=== PATIENT | male | born 1955 | race African-American/Black ===

== ENCOUNTER 2019-03-19 00:19 | Emergency (ER) | payer OTHER ==
[~2019-03-19] VITALS: Ht 188 cm; Wt 104.3 kg
--- NOTE | 2019-03-19 00:45 | NUR ---
Patient BIBA # due to right LE pain with edema on [place]. LE. Patient AAOx4. Able to speak full sentences. In no acute respiratory distress. Breathing even and non-labored. Patient with history of CHF. Denies SOB/CP. No /GI concern. Bed on lock position. Fall precaution per protocol.
--- NOTE | 2019-03-19 00:53 | NUR ---
SUSY LUBIN at bedside for MSE.
[2019-03-19] MEDS ORDERED: FURO20TA90 PO (00:56)
[2019-03-19] MEDS ORDERED: LIPITOR PO (00:56)
[2019-03-19] MEDS ORDERED: CARVEDILOL PO (00:56)
[2019-03-19] MEDS ORDERED: COREG PO (00:56)
[2019-03-19] MEDS ORDERED: ASPI-605 PO (00:56)
[2019-03-19] MEDS ORDERED: ENALAPRIL PO (00:56)
[2019-03-19] MEDS ORDERED: POTA20TA10 PO (01:14)
[2019-03-19] MEDS ORDERED: FUROSEMIDE 20 MG/2 ML VIAL IV ONE (01:15)
[2019-03-19] MEDS ORDERED: FUROSEMIDE 40 MG/4 ML VIAL ONE (01:16)
[2019-03-19 01:25] LABS: BASOPHILS % (AUTO) 0.9 % (0.0-2.0); EOSINOPHILS # (AUTO) 0.1 K/uL (0.0-0.7); EOSINOPHILS % (AUTO) 1.7 % (0.0-7.0); HEMOGLOBIN 13.8 g/dL (12.5-16.3); LYMPHOCYTES # (AUTO) 2.6 K/uL (20.0-40.0); LYMPHOCYTES % (AUTO) 50.6 % (20.5-51.5); MEAN CORPUSCULAR HEMOGLOBIN 31.3 uug (23.8-33.4); MEAN CORPUSCULAR HGB CONC 34 g/dL (32.5-36.3); MEAN CORPUSCULAR VOLUME 91.1 fL (73.0-96.2); MONOCYTES # (AUTO) 0.4 K/uL (2.0-10.0); MONOCYTES % (AUTO) 8.7 % (0.0-11.0); NEUTROPHILS % (AUTO) 38.1 % (38.5-71.5); PLATELET COUNT (AUTO) 247 K/uL (152-348); RED BLOOD CELL COUNT(AUTO) 4.39 MIL/uL (4.06-5.63); WHITE BLOOD COUNT (AUTO) 5.1 K/uL (3.6-10.2)
[2019-03-19] MEDS ORDERED: HYDROCODONE/APAP 5-325MG TABLET ONE (01:30)
[2019-03-19] MEDS ORDERED: HYDROCODONE/APAP 5-325MG TABLET PO ONE (01:30)
[2019-03-19 01:33] LABS: CREATININE 1.1 mg/dL (0.6-1.3); POTASSIUM 3.2 mmol/L (3.5-5.1)
[2019-03-19 01:45] LABS: BILIRUBIN,DIRECT 0.1 mg/dL (0.0-0.2); BILIRUBIN,TOTAL 0.3 mg/dL (0.2-1.0); TOTAL PROTEIN, SERUM 7.1 g/dL (6.4-8.2)
[2019-03-19] MEDS ORDERED: POTASSIUM BICARBONATE/CIT AC 25 MEQ TABLET.EFF PO ONE (02:15)
[2019-03-19] MEDS ORDERED: POTASSIUM BICARBONATE/CIT AC 25 MEQ TABLET.EFF ONE (02:19)
[2019-03-19 02:23] VITALS: BP 174/107
[2019-03-19] MEDS ORDERED: CLONIDINE HCL 0.1 MG TABLET ONE (02:24)
[2019-03-19] MEDS ORDERED: CLONIDINE HCL 0.1 MG TABLET PO ONE (02:30)
--- NOTE | 2019-03-19 03:01 | NUR ---
Patient staying for observation and will be discharge this morning per Dr. Irving.
--- NOTE | 2019-03-19 04:05 | NUR ---
Patient asleep and appears comfortable in bed. In no acute distress. Denies any pain or SOB. Continue to monitor.
--- NOTE | 2019-03-19 06:08 | NUR ---
Patient discharged to home in stable conditon. Written and verbal after care instructions given. Patient verbalizes understanding of instructions. Patient signed homeless waiver form. Per patient he will wait for Nurse Orthopaedic for assiatnce in transportation and fpc. Patient ambulated out of ER with steady gait. Patient willl stay at the waiting room to wait for the janitorial maintenance worker's arrival. Patient provided with meal. Patient wearing appropriate clothing for weather. All belongings with patient. Nursing swimming pool maintenance supervisor Irma OCAMPO aware.
--- NOTE | 2019-03-19 10:54 | NUR ---
9:10am: This SW received a call from ED RN Lin, requesting a SS consultation request due to patient waiting in the ED waiting room after being discharged from last night's admission. SW arrived to the ED, and met with the patient in the ED waiting room. Patient had been given a breakfast tray, and was finishing his morning meal. Patient is a 63 year old male, who was brought in to the ED last night by ambulance, due to leg pain/swelling. Patient is oriented x 4, ambulatory. Patient seen and cleared by ED physician last night. Patient stated he is homeless, and stated that he had been given a homeless resource packet by the ED nurse during his admission. Patient found the packet in patient's discharge paperwork, and reviewed it with him, explaining the different resources: shelters, locations for food and showers, list of pharmacies, and a list of medical and mental health clinics, along with a list of substance abuse treatment programs. Patient expressed understanding the resources that were explained to him, but stated that he does not want to go to a residential because he was working with his watch case polisher at [facility] to get some housing. Patient asked for assistance with getting transported to [facility]. SW provided patient with a one-day [employer] bus pass, and a print out of the bus route from [facility] to [facility] ([address] [place] [address]). Patient expressed understanding and thanked LU for the information provided. Patient had already signed a homeless patient waiver form when discharged from the ED last night (see RN notes). No further SS interventions needed at this time.
== END 2019-03-19 06:30 | disposition home or self-care (01) ==
LOC: ER 00:24
DX: R60.9 Edema, unspecified (principal); I50.9 Heart failure, unspecified; E78.5 Hyperlipidemia, unspecified; Z91.018 Allergy to other foods; Z59.0 Homelessness; Z79.82 Long term (current) use of aspirin; Z79.899 Other long term (current) drug therapy
CPT/HCPCS: 36415; 71045; 80048; 80076; 83880; 84484; 85025; 85730; 93005; 96374; 99284; J1940; 70030-TC; A4663